=== PATIENT | male | born 1965 | race Caucasian/White ===

== ENCOUNTER 2019-02-08 06:56 | Emergency (ER) | payer OTHER ==
[~2019-02-08] VITALS: Ht 175.3 cm; Wt 113.4 kg
[2019-02-08] MEDS ORDERED: CIPROFLOXACIN500 M1 PO (07:53)
[2019-02-08 08:04] VITALS: BP 141/80
== END 2019-02-08 08:09 | disposition home or self-care (01) ==
LOC: M.ERS 06:56
DX: R30.0 Dysuria (principal)